=== PATIENT | male | born 1940 | race Caucasian/White ===

== ENCOUNTER 2017-12-27 09:55 | Day surgery (SDC) | payer MEDICARE ==
[~2017-12-27] VITALS: Ht 170.2 cm; Wt 78.0 kg
[2017-12-27] MEDS ORDERED: MULTI VITAMINS1 TAB PO (10:34)
[2017-12-27 10:56] VITALS: BP 127/79; PULSE 80; TEMP 97.6
[2017-12-27 15:40] VITALS: BP 131/78; PULSE 71; TEMP 98.3
[2017-12-27 15:55] VITALS: BP 134/67; PULSE 64
[2017-12-27] MEDS ORDERED: ROXICODONE 55 MG/TAB PO (16:04)
[2017-12-27 16:10] VITALS: BP 114/62; PULSE 72
[2017-12-27] MEDS ORDERED: TYLENOL 500MG500 MG PO (16:15)
[2017-12-27 16:25] VITALS: BP 129/89; PULSE 88
== END 2017-12-27 17:12 | disposition home or self-care (01) ==
LOC: SDCO 09:55
DX: K40.30 Unilateral inguinal hernia, with obstruction, without gangrene, not specified as recurrent (principal); Z87.891 Personal history of nicotine dependence
CPT/HCPCS: A4314; C1781; J0690; J1100; J1885; J2250; J2405; J2704; J2710; J2765; J3010; J7120